=== PATIENT | female | born 1985 | race Caucasian/White ===

== ENCOUNTER → 2023-01-23 07:28 | Outpatient (CLI) | payer OTHER, SELFPAY ==
[2023-01-23 08:53] LABS: Follicle Stimulating Hormone 2.12 mIU/mL; Luteinizing Hormone 1.78 mIU/mL; Progesterone, Total 8.01 ng/mL; Prolactin 8.9 ng/mL (3.0-18.6)
[2023-01-29 23:13] LABS: Estrogen 414 pg/mL (.)
== END ==
PROVIDERS: PCP Nurse Practitioner Family; Referring Provider Nurse Practitioner Family; Visit Provider Nurse Practitioner Family
DX: N89.8 Other specified noninflammatory disorders of vagina (principal); E34.9 Endocrine disorder, unspecified
CPT/HCPCS: 36415; 82672; 83001; 83002; 84144; 84146